=== PATIENT | female | born 1960 | race Caucasian/White ===

== ENCOUNTER → 2025-03-03 13:26 | Outpatient (REF) | payer MEDICARE, OTHER, SELFPAY | LOC: RCS 13:26 | PROVIDERS: ATTENDING PHYSICIAN Internal Medicine Cardiovascular Disease; FAMILY PHYSICIAN Family Medicine | DX: I47.10 Supraventricular tachycardia, unspecified (principal) | CPT/HCPCS: 93306 ==

== ENCOUNTER → 2025-03-05 08:51 | Outpatient (REF) | payer MEDICARE, OTHER, SELFPAY ==
[2025-03-05 10:01] LABS: Hematocrit 44.6 % (37.0-47.0); Hemoglobin 14.9 g/dL (12.0-16.0); Mean Corp Hgb Conc. 33.4 g/dL (33.0-37.0); Mean Corpuscular Volume 89.7 fL (81.0-99.0); Nucleated Red Blood Cells % 0 %; Platelet Count 293 10^3/uL (130-400); Red Cell Dist. Width 12.6 % (11.5-14.5)
[2025-03-05 10:32] LABS: ALT (SGPT) 31 U/L (0-35); AST (SGOT) 29 U/L (14-36); Albumin 4.6 g/dl (3.5-5.0); Alkaline Phosphatase 61 U/L (38-126); Blood Urea Nitrogen 14 mg/dl (7-17); Calcium 9.7 mg/dl (8.4-10.2); Carbon Dioxide 29 mmol/L (22-30); Chloride 105 mmol/L (98-107); Glucose 170 mg/dl (70-99); Magnesium 2.0 mg/dl (1.6-2.3); Potassium 4.5 mmol/L (3.5-5.1); Sodium 139 mmol/L (135-145); Total Protein 7.7 g/dl (6.3-8.2); eGFR > 60.00
== END ==
LOC: SDSPAT 08:51
PROVIDERS: ATTENDING PHYSICIAN Internal Medicine Cardiovascular Disease; FAMILY PHYSICIAN Family Medicine
DX: I47.10 Supraventricular tachycardia, unspecified (principal)
CPT/HCPCS: 36415; 80053; 83735; 85025; 93005

== ENCOUNTER 2025-04-01 08:13 | Day surgery (SDC) | payer MEDICARE, OTHER, SELFPAY ==
[2025-03-05 13:04] VITALS: BMI 37.0
[2025-04-01] VITALS (8 sets, daily range): BP systolic 99–131; BP diastolic 56–95; BMI 38.2
[2025-04-01 09:10] LABS: Glucose - Point of Care 157 mg/dl (70-99)
--- NOTE | 2025-04-01 11:22 | ITS.CL.ABL ---
Network Engineering Advisor - Ablation
Ablation
Procedure Report:
Primary Physician: Dr Osman Hernandez
Procedure Date: 04/01/2025
Procedure
Electrophysiology Study with SVT ablation ([id number])
Left atrial recording / pacing
IV drug for arrhythmia induction
Patient History
See H&P for full details
Patient is a pleasant 64-year-old female with a past medical history significant for diabetes, hypertension, dyslipidemia, obesity, sleep apnea untreated, CAD with prior PCI 2016, and symptomatic paroxysmal SVT treated with vagal maneuver, Valsalva,
cold water, and adenosine. Appears as a narrow complex short RP tachycardia at 180-200 bpm.
Method:
After informed consent was obtained, the patient was brought to the EP lab in a post-absorptive, non-sedated state. A peripheral IV was in place. Continuous electrocardiography, blood pressure and pulse oximetry monitoring was initiated and
cardioversion / defibrillator electrodes were positioned on the chest in an AP orientation. A 'time-out' was called. Conscious sedation was administered with the assistance of the anesthesia services, and local anesthesia was given at the femoral
vein access sites.
Using modified Seldinger technique, vascular access was achieved and sheaths were placed. Multipolar catheters were advanced to the coronary sinus, His bundle recording position, right ventricle, and high right atrium. Following the determination
of baseline conduction intervals, comprehensive EP study was performed. Pacing and recording from the RA, RV, HBE, and CS / LA was performed.
Procedure Synopsis:
The patient entered the room in sinus rhythm. Following catheter placement as noted above, initial testing was performed. Baseline intervals recorded. Patient was noted to have robust VA conduction to 280 ms. Additionally, patient's AV
Wenckebach cycle length was similar at 310 ms. Initial drivetrain of atrial pacing with single extrastimulus did not demonstrate an AH jump at baseline or induction of tachycardia. Isoproterenol was started and increased. Sedation was reduced.
Additional atrial pacing with single extra stimulus again did not demonstrate an AH jump or induction of tachycardia. Occasional echo was noted with pacing. Isoproterenol washout then performed. During washout, burst pacing performed in the
atrium yielded initiation of a narrow complex a�on�V tachycardia with a tachycardia cycle length of 340 to 360 ms. With ventricular overdrive pacing, entrainment was not successful due to termination by V overdrive pacing. However, SA�VA time was
greater than 85 ms making pathway less likely. 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 Additional
attempts at reinduction of tachycardia unsuccessful for sustained arrhythmia however patient easily inducible for nonsustained AVNRT. Heparin was provided for an ACT between 300-400 and HD grid advanced through the short 9 [place] sheath.
Electroanatomic mapping then performed within right atrium with careful identification of the HIS cloud/areas of his signal. Areas of low voltage and slow pathway were identified using high density electroanatomic mapping. Short 9 [place] sheath
was exchanged for an 11.5 [place] steerable sheath. Repeat electroanatomic mapping then performed again with HD grid again with careful identification of his and slow pathway in sinus rhythm. HD grid removed and ablation catheter (TactiFlex SE
irrigated D/F) advanced into the right atrium. With careful monitoring of AV conduction, temperature, impedance, power, ablation at 25 W with low flow was performed in the region of the slow pathway with a 1: 3�1: 5 A�V ratio. Stable junctional
beats were noted during ablation without loss of AV conduction. Additional lesions performed in this region without loss of AV conduction. Following completion of ablation, sedation was again reduced and isoproterenol infused. Patient was
noninducible for SVT despite pacing maneuvers during isoproterenol infusion and during isoproterenol washout. Baseline intervals were once more recorded.
Fluoroscopy time:
15.8 min; 173 mGy; DAP 21.8
Estimated Blood Loss
5 mL
Complications
None
At the end of the procedure, all catheters and sheaths were removed and hemostasis was assured with Vascade for each sheath. The patient was returned to the recovery area in stable condition.
Access Sites:
Left Femoral Vein: 2 sheaths (7 Fr, 6 Fr)
Right Femoral Vein: 2 sheaths (9 Fr upsized to 11.5 Fr, 6 Fr)
Baseline Intervals:
Rhythm: SR
CA: 139 ms
AH: 62 ms
HV: 49 ms
QRS: 105 ms
QT: 348 ms
QTc: 447 ms
A-A: 640 ms
R-R: 640 ms
Post-Procedure Intervals:
CA: 131 ms
AH: 76 ms
HV: 49 ms
QRS: 101 ms
QT: 386 ms
QTc: 480 ms
AV Conduction:
- AVWB: 310 ms
- VAWB: 280 ms
Refractory Periods:
- AVNERP: 600/330 ms
- AERP: 600/240 ms
Recommendations:
- Bedrest with straight-leg precautions as ordered
- Anticipate same day discharge if patient meeting clinical metrics
- Resume home medications as indicated
- Plan for follow-up in office as scheduled
Aniket Flores DO, FACC, FHRS
Clinical Cardiac Electrophysiology
cc: Dr Osman Hernandez
[2025-04-01 13:29] LABS: Glucose - Point of Care 113 mg/dl (70-99)
[2025-04-01 13:30] LABS: ACT-LR - POC 253 Seconds (116-155)
[2025-04-01 14:15] LABS: ACT-LR - POC 218 Seconds (116-155)
[2025-04-01 15:19] LABS: ACT-LR - POC 195 Seconds (116-155)
[2025-04-01 16:04] LABS: Glucose - Point of Care 90 mg/dl (70-99)
== END 2025-04-01 18:13 | disposition home or self-care (01) ==
LOC: CATH 08:13
PROVIDERS: ATTENDING PHYSICIAN Internal Medicine Cardiovascular Disease; FAMILY PHYSICIAN Family Medicine
DX: I47.19 Other supraventricular tachycardia (principal); I11.9 Hypertensive heart disease without heart failure; E78.5 Hyperlipidemia, unspecified; Z95.5 Presence of coronary angioplasty implant and graft; E11.9 Type 2 diabetes mellitus without complications; I25.10 Atherosclerotic heart disease of native coronary artery without angina pectoris; Z79.84 Long term (current) use of oral hypoglycemic drugs; Z72.0 Tobacco use; G47.33 Obstructive sleep apnea (adult) (pediatric); G47.00 Insomnia, unspecified; Z86.19 Personal history of other infectious and parasitic diseases; E66.9 Obesity, unspecified; Z68.38 Body mass index [BMI] 38.0-38.9, adult; Z79.899 Other long term (current) drug therapy; Z88.1 Allergy status to other antibiotic agents; Z88.5 Allergy status to narcotic agent; I25.2 Old myocardial infarction; I44.4 Left anterior fascicular block
CPT/HCPCS: C1732; C1894; C1730; C1766; C1892; 82962; 85347; 93005; 93623; 93653; C1760